=== PATIENT | male | born 1945 | race Caucasian/White ===

== ENCOUNTER 2017-11-08 02:03 | Emergency (ER) | payer MEDICARE ==
[~2017-11-08] VITALS: Ht 172.7 cm; Wt 86.2 kg
[~2017-11-08 02:03] MED LIST: ASP325T PO; CEPH500C PO; DOCU100T7 PO; HC2.5C30 PR; HYDR-3583 PO; IBUP50DR PO; MAGN-47 PO; PSYL1PAC10 PO
--- OUTSIDE RECORDS SUMMARY | 2017-11-08 02:10 | XMS REPORT | Continuity of Care Document ---
Author Author [facility] Organization [facility] Address Unknown Phone Unavailable Allergies Active Description Code Type Severity Reaction Onset Reported/Identified Relationship to Patient Clinical Status Yes No Known Drug Allergies [id number] Drug Allergy Unknown N/A 06/29/2010 Medications There is no data. Problems Date Dx Coded Attending Type Code Diagnosis Diagnosed By 07/30/2011 Ot 550.91 RECUR UNILAT INGUIN REG 02/10/2012 Ot V12.72 PERSONAL HISTORY OF COLONIC POLYPS 02/10/2012 Ot V76.51 SCREEN MAL NEOP-COLON 08/14/2012 Ot 354.0 CARPAL TUNNEL SYNDROME 09/14/2012 Ot V57.21 ENCOUNTER FOR OCCUPATIONAL THERAPY 09/14/2012 Ot V58.49 OTHER SPECIFIED AFTERCARE FOLLOWING SURG 02/16/2016 Ot 550.90 UNILAT INGUINAL HERNIA 02/16/2016 Ot V72.63 PRE- PROCEDURAL LABORATORY EXAMINATION 02/16/2016 Ot V74.8 SCREEN- BACTERIAL DIS NEC 02/16/2016 Ot V72.84 EXAM PRE- OPERATIVE NOS 02/16/2016 Ot 719.40 JOINT PAIN- UNSPEC 02/16/2016 Ot 729.5 PAIN IN LIMB 02/16/2016 Ot 716.90 ARTHROPATHY NOS-UNSPEC 02/16/2016 Ot 719.00 JOINT EFFUSION-UNSPEC 02/16/2016 Ot 354.0 CARPAL TUNNEL SYNDROME 02/16/2016 Ot V72.63 PRE- PROCEDURAL LABORATORY EXAMINATION 02/16/2016 BRADLEY RAZO DO Ot 599.70 HEMATURIA, UNSPECIFIED 02/16/2016 BRADLEY RAZO DO Ot 788.41 URINARY FREQUENCY 02/16/2016 BRADLEY RAZO DO Ot 729.5 PAIN IN LIMB 02/20/2016 BRADLEY RAZO DO Ot S99.922A UNSPECIFIED INJURY OF LEFT FOOT, INITIAL 02/20/2016 BRADLEY RAZO DO Ot W20.8XXA OTH CAUSE OF STRIKE BY THROWN, PROJECTED 02/20/2016 DANNI LUKE BRADLEY Aponte Ot Y92.[address] [facility] (PRIVATE 02/20/2016 GELLENDER DO, BRADLEY Aponte Ot S99.922A UNSPECIFIED INJURY OF LEFT FOOT, INITIAL 02/20/2016 GELLENDER DO, BRADLEY Aponte Ot W20.8XXA OTH CAUSE OF STRIKE BY THROWN, PROJECTED 02/20/2016 GELLENDER DO, BRADLEY Aponte Ot Y92.[address] [facility] NON[facility] (PRIVATE 02/21/2016 GELLENDER DO, BRADLEY Aponte Ot S99.922A UNSPECIFIED INJURY OF LEFT FOOT, INITIAL 02/21/2016 GELLENDER DO, BRADLEY Aponte Ot W20.8XXA OTH CAUSE OF STRIKE BY THROWN, PROJECTED 02/21/2016 GELLENDER DO, BRADLEY Aponte Ot Y92.[address] [facility] NON-INSTITUT (PRIVATE 03/19/2016 GELLENDER DO, BRADLEY Aponte Ot S99.922A UNSPECIFIED INJURY OF LEFT FOOT, INITIAL 03/19/2016 GELLENDER DO, BRADLEY Aponte Ot W20.8XXA OTH CAUSE OF STRIKE BY THROWN, PROJECTED 03/19/2016 GELLENDER DO, BRADLEY Aponte Ot Y92.[address] IN [facility] NON-INSTITUT (PRIVATE Procedures There is no data. Results There is no data. Encounters ACCT No. Visit Date/Time Discharge Status Pt. Type Provider Facility Loc./Unit Complaint [id number] 02/16/2016 11:02:00 02/16/2016 23:59:59 [facility] Outpatient BRADLEY RAZO DO [facility] RAD [id number] 09/06/2014 12:16:00 09/06/2014 23:59:59 [facility] Outpatient ISABELLENDER BRADLEY LUKE [facility] RAD [id number] 09/16/2013 10:10:00 09/16/2013 23:59:59 [facility] Outpatient MIODER BRADLEY LUKE [facility] LAB [id number] 11/08/2017 02:06:00 ACT Emergency STAS ZOHAIB LUKE [facility] ER DIZZY,WEAK [id number] 09/10/2012 11:08:00 Document Registration [id number] 08/14/2012 05:31:00 Document Registration [id number] 08/10/2012 08:31:00 Document Registration [id number] 06/09/2012 15:13:00 Document Registration [id number] 06/02/2012 12:17:00 Document Registration [id number] 02/10/2012 08:20:00 Document Registration [id number] 02/06/2012 08:22:00 Document Registration [id number] 07/30/2011 05:31:00 Document Registration [id number] 07/22/2011 08:55:00 Document Registration
[2017-11-08] MEDS ORDERED: SCOPOLAMINE 1.5 MG (TRANSDERM-SCOP) PATCH TD ONE (02:30)
--- NOTE | 2017-11-08 02:30 | ED General ---
General Chief Complaint: Neurological Problems Stated Complaint: DIZZY,WEAK Nursing Triage Note: weakness, dizzy. Nursing Sepsis Screen: No Definite Risk Source of Information: Patient History of Present Illness Time Seen by Provider: 02:14 Initial Comments PT ARRIVES VIA POV FROM HOME PT STATES AN HOUR AGO, HE GOT UP TO GO TO THE BATHROOM AND WAS SUDDENLY VERY DIZZY--ROOM SPINNING--AND HAVING DIFFICULTY WALKING NO HEADACHE NO NAUSEA/VOMITING NO SWEATS NO VISION CHANGES NO PARESTHESIAS OR MOTOR DEFICITS NO CHEST PAIN NO SHORTNESS OF BREATH NO PALPITATIONS NO HISTORY OF SIMILAR TOOK ONE OF HIS 'S GLUCOSE TABS AND AN ASPIRIN WITHOUT IMPROVEMENT IN SYMPTOMS 3 WEEKS AGO HAD "FLU LIKE SYMPTOMS" AND WAS SEEN AT URGENT CARE, AND WAS GIVEN RX FOR ZITHROMAX AND THOSE SYMPTOMS COMPLETELY RESOLVED. PCP: DR. RAZO Allergies and Home Medications Allergies Coded Allergies: No Known Drug Allergies (Unverified , 06/29/10) Home Medications Meclizine HCl 25 Mg Tablet, 25-50 MG PO Q6H, #30 Prescribed by: ZOHAIB MCCLELLAND on 11/08/17 0322 Scopolamine 1 Each Patch.td72, 1 EACH TD Q72 HOURS, #2 Prescribed by: ZOHAIB MCCLELLAND on 11/08/17 0322 Constitutional: see HPI, No chills, No diaphoresis, dizziness, No fever, No malaise, No weakness EENTM: no symptoms reported Respiratory: no symptoms reported Cardiovascular: no symptoms reported Gastrointestinal: no symptoms reported Genitourinary: no symptoms reported Musculoskeletal: no symptoms reported Skin: no symptoms reported Psychiatric/Neurological: No Symptoms Reported Hematologic/Lymphatic: No Symptoms Reported Immunological/Allergic: no symptoms reported Past Wzmdjck-Yltocj-Pieown Hx Patient Social History Alcohol Use: Denies Use Recreational Drug Use: No Smoking Status: Never a Smoker 2nd Hand Smoke Exposure: No Recent Foreign Travel: No Contact w/Someone Who Travel: No Recent Infectious Disease Expo: No Recent Hopitalizations: No Immunizations Up To Date Tetanus Booster (TDap): Unknown Seasonal Allergies Seasonal Allergies: No Surgeries History of Surgeries: Yes (BILATERAL INGUINAL HERNIA REPAIRS, 3 VENTRAL HERNIA REPAIRS, LEFT CARPAL TUNNEL REPAIR) Surgeries: Abdominal, Orthopedic Respiratory History of Respiratory Disorde: No Cardiovascular History of Cardiac Disorders: No Neurological History of Neurological Disord: No Reproductive System Hx Reproductive Disorders: No Sexually Transmitted Disease: No Genitourinary History of Genitourinary Disor: No Gastrointestinal History of Gastrointestinal Di: Yes (INGUINAL AND VENTRAL HERNIAS) Gastrointestinal Disorders: Abdominal Hernia Musculoskeletal History of Musculoskeletal Dis: No (LEFT CARPAL TUNNEL REPAIR) Endocrine History of Endocrine Disorders: No HEENT History of HEENT Disorders: No Cancer History of Cancer: No Psychosocial History of Psychiatric Problem: No Integumentary History of Skin or Integumenta: No Blood Transfusions History of Blood Disorders: No Physical Exam Vital Signs Vital Sign - Last 12Hours 11/08/17 02:10 Temp 96.1 Pulse 67 Resp 16 B/P (MAP) 188/106 (133) Pulse Ox 95 O2 Delivery Room Air Capillary Refill : Less Than 3 Seconds General Appearance: No Apparent Distress, WD/WN, Other (AMBULATES WITHOUT DIFFICULTY, PACING AROUND ROOM) HEENT: PERRL/EOMI Neck: Full Range of Motion, Normal Inspection, Non Tender, Supple, No Carotid Bruit, No JVD Respiratory: Normal Breath Sounds, No Accessory Muscle Use, No Respiratory Distress Cardiovascular: Regular Rate, Rhythm, No Edema, No JVD, No Murmur, Normal Peripheral Pulses Gastrointestinal: Normal Bowel Sounds, No Organomegaly, No Pulsatile Mass, Non Tender, Soft Back: Normal Inspection Extremity: Normal Capillary Refill, Normal Inspection, Normal Range of Motion, Non Tender, No Calf Tenderness, No Pedal Edema Neurologic/Psychiatric: Alert, Oriented x3, No Motor/Sensory Deficits, Normal Mood/Affect, gift packer II-XII Norm as Tested, Abnormal Cerebellar Tests Skin: Normal Color, Warm/Dry, Tattoos/Piercings (MULTIPLE TATTOOS) Progress/Results/Core Measures Suspected Sepsis Recent Fever Within 48 Hours: No Infection Criteria Present: None New/Unexplained Altered Menta: No Sepsis Screen: No Definite Risk Sepsis Diagnosis: SIRS Temperature:96.1 Pulse: 67 Respiratory Rate: 16 Laboratory Tests 11/08/17 02:20: White Blood Count 7.8 Blood Pressure 188 /106 Mean: 133 Laboratory Tests 11/08/17 02:20: Creatinine 0.78, INR Comment 0.9, Platelet Count 226, Total Bilirubin 0.3 Results/Orders Lab Results Laboratory Tests Test 11/08/17 02:20 11/08/17 02:28 Range/Units White Blood Count 7.8 4.3-11.0 10^3/uL Red Blood Count 4.61 4.35-5.85 10^6/uL Hemoglobin 15.2 13.3-17.7 G/DL Hematocrit 44 40-54 % Mean Corpuscular Volume 95 80-99 FL Mean Corpuscular Hemoglobin 33 25-34 PG Mean Corpuscular Hemoglobin Concent 35 32-36 G/DL Red Cell Distribution Width 13.3 10.0-14.5 % Platelet Count 226 130-400 10^3/uL Mean Platelet Volume 10.2 7.4-10.4 FL Neutrophils (%) (Auto) 54 42-75 % Lymphocytes (%) (Auto) 31 12-44 % Monocytes (%) (Auto) 10 0-12 % Eosinophils (%) (Auto) 5 0-10 % Basophils (%) (Auto) 0 0-10 % Neutrophils # (Auto) 4.3 1.8-7.8 X 10^3 Lymphocytes # (Auto) 2.4 1.0-4.0 X 10^3 Monocytes # (Auto) 0.8 0.0-1.0 X 10^3 Eosinophils # (Auto) 0.4 H 0.0-0.3 10^3/uL Basophils # (Auto) 0.0 0.0-0.1 10^3/uL Prothrombin Time 11.9 L 12.2-14.7 SEC INR Comment 0.9 0.8-1.4 Activated Partial Thromboplast Time 31 24-35 SEC Sodium Level 141 135-145 MMOL/L Potassium Level 4.2 3.6-5.0 MMOL/L Chloride Level 105 98-107 MMOL/L Carbon Dioxide Level 24 21-32 MMOL/L Anion Gap 12 5-14 MMOL/L Blood Urea Nitrogen 19 H 7-18 MG/DL Creatinine 0.78 0.60-1.30 MG/DL Estimat Glomerular Filtration Rate > 60 BUN/Creatinine Ratio 24 Glucose Level 127 H 70-105 MG/DL Calcium Level 9.3 8.5-10.1 MG/DL Magnesium Level 2.3 1.8-2.4 MG/DL Total Bilirubin 0.3 0.1-1.0 MG/DL Aspartate Amino Transf (AST/SGOT) 18 5-34 U/L Alanine Aminotransferase (ALT/SGPT) 20 0-55 U/L Alkaline Phosphatase 75 40-136 U/L Troponin I < 0.30 <0.30 NG/ML Total Protein 7.4 6.4-8.2 GM/DL Albumin 3.9 3.2-4.5 GM/DL TSH [place] Testing 3.47 0.35-4.94 UIU/ML Urine Color YELLOW Urine Clarity CLEAR Urine pH 5 5-9 Urine Specific [place] 1.025 H 1.016-1.022 Urine Protein NEGATIVE NEGATIVE Urine Glucose (UA) NEGATIVE NEGATIVE Urine Ketones NEGATIVE NEGATIVE Urine Nitrite NEGATIVE NEGATIVE Urine Bilirubin NEGATIVE NEGATIVE Urine Urobilinogen NORMAL NORMAL MG/DL Urine Leukocyte Esterase NEGATIVE NEGATIVE Urine RBC (Auto) 1+ H NEGATIVE Urine RBC 0-2 /HPF Urine WBC NONE /HPF Urine Squamous Epithelial Cells 0-2 /HPF Urine Crystals NONE /LPF Urine Bacteria NEGATIVE /HPF Urine Casts NONE /LPF Urine Mucus SMALL H /LPF Urine Culture Indicated NO My Orders Orders - ZOHAIB MCCLELLAND DO Saline Lock/Iv-Start (11/08/17 02:13) Ekg Tracing (11/08/17 02:13) Monitor-Rhythm Ecg Trace Only (11/08/17 02:13) Cbc With Automated Diff (11/08/17 02:13) Comprehensive Metabolic Panel (11/08/17 02:13) Magnesium (11/08/17 02:13) Protime With Inr (11/08/17 02:13) Partial Thromboplastin Time (11/08/17 02:13) Thyroid Analyzer (11/08/17 02:13) Troponin I (11/08/17 02:13) Ua Culture If Indicated (11/08/17 02:13) Ct Head Wo-R/O Stroke (11/08/17 02:24) Chest Pa/Lat (2 View) (11/08/17 02:24) Scopolamine Patch (Transderm-Scop Patch) (11/08/17 02:30) Meclizine Tablet (Antivert Tablet) (11/08/17 03:15) Medications Given in ED Current Medications Medications Dose Ordered Sig/Carlito Route Start Time Stop Time Status Last Admin Dose Admin Meclizine HCl 50 mg ONCE ONCE PO 11/08/17 03:15 11/08/17 03:16 DC 11/08/17 03:19 50 MG Scopolamine 1.5 mg ONCE ONCE TD 11/08/17 02:30 11/08/17 02:53 DC 11/08/17 02:32 1.5 MG Vital Signs/I&O Vital Sign - Last 12Hours 11/08/17 11/08/17 02:10 03:03 Temp 96.1 Pulse 67 68 Resp 16 16 B/P (MAP) 188/106 (133) 174/96 (122) Pulse Ox 95 95 O2 Delivery Room Air Room Air Capillary Refill : Less Than 3 Seconds Blood Pressure Mean: 133 Progress Note : Progress Note SYMPTOMS IMPROVED AND BP DOWN TO 150'S /70'S PRIOR TO DISMISSAL PT FEELS COMFORTABLE GOING HOME ECG Initial ECG Impression Time: 02:35 Initial ECG Rate: 63 Initial ECG Rhythm: Normal Sinus (RBBB) Diagnostic Imaging Comments CXR--NO ACUTE PROCESS, PENDING RADIOLOGIST REVIEW CT HEAD--NO ACUTE PROCESS, PER [facility] VIA FAX @ [phone] Reviewed: Reviewed by Me Departure Impression Impression: Primary Impression: Vertigo Additional Impression: HTN (hypertension) Disposition: 01 HOME, SELF-CARE Condition: Improved Departure-Patient Inst. Referrals: BRADLEY RAZO DO (PCP/Family) Primary Care Physician Patient Instructions: Controlling Your Blood Pressure Through Lifestyle, High Blood Pressure (DC), Vertigo (a Type of Dizziness) (DC) Add. Discharge Instructions: SLOW POSITION CHANGES LEAVE SCOPOLAMINE PATCH ON FOR 3 DAYS FOLLOW UP WITH DR. RAZO ON FRIDAY FOR FURTHER CARE RETURN TO ER IF SYMPTOMS WORSEN All discharge instructions reviewed with patient and/or family. Voiced understanding. Scripts Scopolamine (Transderm-Scop) 1 Each Patch.td72 1 EACH TD Q72 HOURS for Dizziness, #2 PATCH Prov: ZOHAIB MCCLELLAND DO 11/08/17 Meclizine HCl (Meclizine HCl) 25 Mg Tablet 25-50 MG PO Q6H for Dizziness, #30 TAB Prov: ZOHAIB MCCLELLAND DO 11/08/17 ZOHAIB MCCLELLAND DO Nov 08, 2017 02:30
[2017-11-08 02:34] LABS: RED BLOOD COUNT 4.61 10^6/uL (4.35-5.85); WHITE BLOOD COUNT 7.8 10^3/uL (4.3-11.0)
[2017-11-08 02:35] LABS: BASOPHILS % (AUTO) 0 % (0-10); EOSINOPHILS # (AUTO) 0.4 10^3/uL (0.0-0.3); EOSINOPHILS % (AUTO) 5 % (0-10); HEMATOCRIT 44 % (40-54); HEMOGLOBIN 15.2 G/DL (13.3-17.7); LYMPHOCYTES # (AUTO) 2.4 X 10^3 (1.0-4.0); LYMPHOCYTES % (AUTO) 31 % (12-44); MEAN CORPUSCULAR HEMOGLOBIN 33 PG (25-34); MEAN CORPUSCULAR HGB CONC 35 G/DL (32-36); MEAN CORPUSCULAR VOLUME 95 FL (80-99); MEAN PLATELET VOLUME 10.2 FL (7.4-10.4); MONOCYTES # (AUTO) 0.8 X 10^3 (0.0-1.0); MONOCYTES % (AUTO) 10 % (0-12); NEUTROPHILS # (AUTO) 4.3 X 10^3 (1.8-7.8); NEUTROPHILS % (AUTO) 54 % (42-75); PLATELET COUNT 226 10^3/uL (130-400); RED CELL DISTRIBUTION WIDTH 13.3 % (10.0-14.5)
[2017-11-08 02:44] LABS: BILIRUBIN,URINE NEGATIVE (NEGATIVE); CLARITY,URINE CLEAR; COLOR,URINE YELLOW; GLUCOSE, URINE (UA) NEGATIVE (NEGATIVE); KETONES,URINE NEGATIVE (NEGATIVE); LEUKOCYTE ESTERASE ,URINE NEGATIVE (NEGATIVE); NITRITE,URINE NEGATIVE (NEGATIVE); PH,URINE 5 (5-9); PROTEIN,URINE NEGATIVE (NEGATIVE); UROBILINOGEN,URINE NORMAL (NORMAL)
[2017-11-08 02:45] LABS: INR 0.9 (0.8-1.4); PROTHROMBIN TIME PATIENT 11.9 SEC (12.2-14.7)
[2017-11-08 02:52] LABS: BACTERIA,URINE NEGATIVE /HPF; RBC,URINE 0-2 /HPF; SQUAMOUS EPITHELIAL CELL,UR 0-2 /HPF
[2017-11-08 02:54] LABS: ALANINE AMINOTRANSFERASE 20 U/L (0-55); ALBUMIN 3.9 GM/DL (3.2-4.5); ALKALINE PHOSPHATASE 75 U/L (40-136); BILIRUBIN,TOTAL 0.3 MG/DL (0.1-1.0); BUN/CREATININE RATIO 24; CALCIUM 9.3 MG/DL (8.5-10.1); CARBON DIOXIDE 24 MMOL/L (21-32); CHLORIDE 105 MMOL/L (98-107); CREATININE SERUM 0.78 MG/DL (0.60-1.30); GFR ESTIMATED > 60; GLUCOSE 127 MG/DL (70-105); MAGNESIUM 2.3 MG/DL (1.8-2.4); POTASSIUM 4.2 MMOL/L (3.6-5.0); SODIUM 141 MMOL/L (135-145); TOTAL PROTEIN 7.4 GM/DL (6.4-8.2)
[2017-11-08 03:03] VITALS: BP 174/96
[2017-11-08 03:13] LABS: TSH (THYROID ANALYZER) 3.47 UIU/ML (0.35-4.94)
[2017-11-08] MEDS ORDERED: MECLIZINE 25 MG (ANTIVERT) TAB PO ONE (03:15)
[2017-11-08] MEDS ORDERED: MECL-106 PO (03:22)
[2017-11-08] MEDS ORDERED: SCOP1PAT TD (03:22)
[2017-11-08 04:02] VITALS: BP 158/83
--- NOTE | 2017-11-08 07:13 | Diagnostic Imaging Report ---
EXAM: CHEST PA/LAT (2 VIEW) INDICATION: Dizziness. Weakness. COMPARISON: None. FINDINGS: Normal heart size and pulmonary vascularity. Calcified aorta. No focal pulmonary opacity, pleural effusion or pneumothorax. Osseous structures are unremarkable. IMPRESSION: No acute cardiopulmonary findings. Dictated by: Dictated on workstation # [id number]
--- NOTE | 2017-11-08 07:27 | Diagnostic Imaging Report ---
EXAMINATION: CT HEAD WO-R/O STROKE INDICATION: Dizziness. Weakness. COMPARISON: None. FINDINGS: Moderate generalized cerebral and cerebellar parenchymal volume loss. Diffuse low-attenuation changes in the subcortical white matter are generally symmetric bilaterally. No CT evidence for large territorial infarction. No intracranial hemorrhage, mass effect, hydrocephalus or extra axial fluid collections. Osseous structures are intact. Mild mucosal thickening in the right maxillary sinus. The mastoids are clear. IMPRESSION: No CT evidence of a territorial infarction. Nonspecific low attenuation changes in the deep white matter bilaterally may represent leukoaraiosis. However, an acute or subacute process cannot be excluded. This could be better evaluated with MRI. Dictated by: Dictated on workstation # [id number]
== END 2017-11-08 04:00 | disposition home or self-care (01) ==
LOC: EDUNIT# 02:03 → ER 02:06
DX: R42 Dizziness and giddiness (principal); I10 Essential (primary) hypertension; Z87.19 Personal history of other diseases of the digestive system
CPT/HCPCS: 36415; 70450; 71046; 80053; 81000; 83735; 84443; 84484; 85025; 85610; 85730; 93005; 93041

== ENCOUNTER → 2020-01-03 | Outpatient (CLI) | payer MEDICARE ==
[~2020-01-03] MED LIST changes: +MECL-149 PO; +SCOP1PAT11 TD
--- NOTE | 2020-01-03 14:19 | Diagnostic Imaging Report ---
INDICATION: Left lower back pain, bilateral hip pain. TECHNIQUE: AP pelvis along with 2 views bilateral hips, 12:02 PM. CORRELATION STUDY: None FINDINGS: The pelvis demonstrates no evidence for acute fracture. The pectineal lines and obturator rings are maintained. Pubic symphysis and SI joints are unremarkable. There is mild degenerative change of both hips which includes joint space narrowing. Mild overhanging osteophyte formation is present. Bony trabecular pattern is intact. Findings compatible with prior right abdominal wall hernia repair. Moderate severity fecal retention. Asymmetric degenerative changes along the disc space along the right aspect of the lower lumbar spine. IMPRESSION: Negative examination of the pelvis . 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 Dictated by: Dictated on workstation # [id number]
== END ==
LOC: RAD 11:37
PROVIDERS: ATTEND Family Medicine
DX: M16.0 Bilateral primary osteoarthritis of hip (principal)
CPT/HCPCS: 73523

== ENCOUNTER 2021-05-29 12:26 | Emergency (ER) | payer MEDICARE ==
[~2021-05-29] VITALS: Ht 177.8 cm; Wt 86.2 kg
--- NOTE | 2021-05-29 12:53 | ED Cardiac General ---
History of Present Illness General Chief Complaint: Cardiac/General Problems Stated Complaint: HIGH BP Source: patient Exam Limitations: no limitations History of Present Illness Date Seen by Provider: May 29, 2021 Time Seen by Provider: 12:[address] [facility] called ahead to notify us the patient would be coming out to the ER. Presented to the clinic with chief complaint of dizziness and thought maybe he was having an anxiety attack but was noted to have a blood pressure of 240/105. Typically his blood pressure runs in the 140 over nineties range. Patient states that this morning about 615 he woke up with lightheadedness feeling of movement around the room. He says it was similar to an episode a few years ago he was given a pill that made it all go better. He went to see his doctor, Dr. Razo who measured his blood pressure 200 systolic in his left arm and 210 systolic on his right arm. He thought maybe part of it was anxiety however Dr. Razo insisted he come to the ER to be further evaluated. He does not take any medicines routinely nor have any other known medical history. He says he been working on the yard a lot here lately and had to struggle with pulling a boat yesterday. He did try eating something today which made him feel little better but did not help. He says it is worse when he gets up out of bed or up from a seated position. He has not taken any Dramamine, meclizine, scopolamine. He is not having any double vision, seeing any spots, weakness, numbness, slurred speech, facial droop. Allergies and Home Medications Allergies Coded Allergies: No Known Drug Allergies (Unverified , 06/29/10) Home Medications Amlodipine Besylate 5 Mg Tablet, 5 MG PO DAILY Prescribed by: SYED LOUIS on 05/29/21 1443 Meclizine HCl 25 Mg Tablet, 25-50 MG PO Q6H Prescribed by: ZOHAIB MCCLELLAND on 11/08/17 032 Scopolamine 1 Each Patch.td72, 1 EACH TD Q72 HOURS Prescribed by: ZOHAIB MCCLELLAND on 11/08/17321 Patient Home Medication List Home Medication List Reviewed: Yes Review of Systems Review of Systems Constitutional: No chills, No diaphoresis EENTM: No Blurred Vision, No Double Vision Respiratory: Denies Cough, Denies Shortness of Air Cardiovascular: Denies Chest Pain, Denies Lightheadedness Gastrointestinal: Denies Constipated, Denies Diarrhea Genitourinary: Denies Discharge, Denies Drainage Musculoskeletal: No back pain, No joint pain Skin: No pruritus, No rash All Other Systems Reviewed Negative Unless Noted: Yes Past Pwkhlsw-Arwfgt-Ilmfyf Hx Patient Social History Tobacco Use?: No Smoking Status: Never a Smoker Substance use?: No Alcohol Use?: No Pt feels they are or have been: No Immunizations Up To Date Tetanus Booster (TDap): Unknown Seasonal Allergies Seasonal Allergies: No Past Medical History Surgeries: Yes Abdominal, Orthopedic Respiratory: No Cardiac: No Neurological: No Reproductive Disorders: No Sexually Transmitted Disease: No Genitourinary: No Gastrointestinal: Yes (INGUINAL AND VENTRAL HERNIAS) Abdominal Hernia Musculoskeletal: No (LEFT CARPAL TUNNEL REPAIR) Endocrine: No HEENT: No Cancer: No Psychosocial: No Integumentary: No Blood Disorders: No Physical Exam Vital Signs Vital Signs - First Documented 05/29/21 12:33 Temp 36.5 Pulse 73 Resp 20 B/P (MAP) 236/105 (148) Pulse Ox 97 O2 Delivery Room Air Capillary Refill : Less Than 3 Seconds Height, Weight, BMI Height: 5'8.00" Weight: 190lbs. 0oz. 86.246839mm; BMI Method:Stated General Appearance: No Apparent Distress, WD/WN HEENT: PERRL/EOMI, Pharynx Normal, Moist Mucous Membranes Neck: Full Range of Motion, Normal Inspection, Supple Respiratory: Lungs Clear, Normal Breath Sounds, No Accessory Muscle Use, No Respiratory Distress Cardiovascular: Regular Rate, Rhythm, No Edema, Normal Peripheral Pulses Gastrointestinal: Normal Bowel Sounds, Non Tender, Soft Neurologic/Psychiatric: Alert, Oriented x3, No Motor/Sensory Deficits, Normal Mood/Affect, spray unit feeder II-XII Norm as Tested, Other (Negative for positive head impulse, nystagmus with lateral gaze or abnormal test of skew.) Skin: Normal Color, Warm/Dry Progress/Results/Core Measures Results/Orders Lab Results Laboratory Tests Test 05/29/21 13:07 Range/Units White Blood Count 8.3 4.3-11.0 10^3/uL Red Blood Count 4.58 4.30-5.52 10^6/uL Hemoglobin 14.9 13.3-17.7 g/dL Hematocrit 44 40-54 % Mean Corpuscular Volume 96 80-99 fL Mean Corpuscular Hemoglobin 33 25-34 pg Mean Corpuscular Hemoglobin Concent 34 32-36 g/dL Red Cell Distribution Width 13.0 10.0-14.5 % Platelet Count 222 130-400 10^3/uL Mean Platelet Volume 10.4 9.0-12.2 fL Immature Granulocyte % (Auto) 0 % Neutrophils (%) (Auto) 74 42-75 % Lymphocytes (%) (Auto) 19 12-44 % Monocytes (%) (Auto) 7 0-12 % Eosinophils (%) (Auto) 0 0-10 % Basophils (%) (Auto) 1 0-10 % Neutrophils # (Auto) 6.1 1.8-7.8 10^3/uL Lymphocytes # (Auto) 1.5 1.0-4.0 10^3/uL Monocytes # (Auto) 0.6 0.0-1.0 10^3/uL Eosinophils # (Auto) 0.0 0.0-0.3 10^3/uL Basophils # (Auto) 0.1 0.0-0.1 10^3/uL Immature Granulocyte # (Auto) 0.0 0.0-0.1 10^3/uL Sodium Level 139 135-145 MMOL/L Potassium Level 4.3 3.6-5.0 MMOL/L Chloride Level 105 98-107 MMOL/L Carbon Dioxide Level 24 21-32 MMOL/L Anion Gap 10 5-14 MMOL/L Blood Urea Nitrogen 20 H 7-18 MG/DL Creatinine 0.85 0.60-1.30 MG/DL Estimat Glomerular Filtration Rate 87 BUN/Creatinine Ratio 24 Glucose Level 109 H 70-105 MG/DL Calcium Level 9.4 8.5-10.1 MG/DL Corrected Calcium 9.2 8.5-10.1 MG/DL Total Bilirubin 0.6 0.1-1.0 MG/DL Aspartate Amino Transf (AST/SGOT) 14 5-34 U/L Alanine Aminotransferase (ALT/SGPT) 15 0-55 U/L Alkaline Phosphatase 61 40-136 U/L Troponin I < 0.028 <0.028 NG/ML C-Reactive Protein High Sensitivity 0.07 0.00-0.50 MG/DL B-Type Natriuretic Peptide 72.3 <100.0 PG/ML Total Protein 7.2 6.4-8.2 GM/DL Albumin 4.2 3.2-4.5 GM/DL My Orders Orders - SYED LOUIS Continuous Ekg Monitoring (05/29/21 12:28) Ekg Tracing (05/29/21 12:28) Cbc With Automated Diff (05/29/21 12:28) Comprehensive Metabolic Panel (05/29/21 12:28) Hs C Reactive Protein (05/29/21 12:28) Troponin I (05/29/21 12:28) BNP (05/29/21 12:28) Orthostatic Vital Signs (Adult (05/29/21 12:28) Meclizine Tablet (Antivert Tablet) (05/29/21 13:30) Ct Head Wo (05/29/21 13:28) Labetalol Injection (Normodyne Injection (05/29/21 14:45) Medications Given in ED Current Medications Medications Dose Ordered Sig/Carlito Route Start Time Stop Time Status Last Admin Dose Admin Labetalol HCl 20 mg ONCE ONCE IV 05/29/21 14:45 05/29/21 14:46 DC 05/29/21 14:39 20 MG Meclizine HCl 25 mg ONCE ONCE PO 05/29/21 13:30 05/29/21 13:31 DC 05/29/21 13:40 25 MG Vital Signs/I&O 05/29/21 05/29/21 12:33 13:15 Temp 36.5 Pulse 73 65 68 75 Resp 20 B/P (MAP) 236/105 (148) 204/93 (130) 192/104 (133) 184/100 (128) Pulse Ox 97 O2 Delivery Room Air Progress Progress Note #1: Time: 12:52 Progress Note Labs for previous syncope, EKG. Orthostatics. Hypertensive urgency without any neurologic symptoms elicited. Augustina's maneuver failed to reproduce symptoms. Negative for hints suggesting a peripheral lesion if vertigo is the answer. We will get a set of orthostatics and if his blood pressure does not significantly improve will trial something for blood pressure. If it does improve then we will trial meclizine. I attest that I saw this patient alongside the medical student and agree with his documented history, physical exam and review of systems except as otherwise noted. Progress Note #2: Time: 13:26 Progress Note Orthostats are borderline positive. After about 20 to 30 minutes of resting in the room his blood pressure is down to 184/100 which is a significant decrease. Plan to trial some meclizine and reevaluate. He is not currently vertiginous. If he tolerates the labetalol we will set him out on a calcium channel aleksander, amlodipine and follow-up in 1 week with primary care. Initial ECG Impression Date: May 29, 2021 Initial ECG Impression Time: 12:44 Initial ECG Rate: 65 Initial ECG Rhythm: Normal Sinus Initial ECG Intervals: Normal Initial ECG Impression: Normal Initial ECG Comparisson: No Previous ECG Available Comment Normal sinus rhythm without clinically relevant ST elevation or depression. Right bundle branch block. Diagnostic Imaging Diagonstic Imaging: CT Plain Films/CT/US/NM/MRI: head Comments [facility], [place] NAME: PABLO HALE [facility] REC#: [id number] PT STATUS: REG ER : 1945 PHYSICIAN: SYED LOUIS MD ADMIT DATE: 05/29/21/ER Draft Date of Exam:05/29/21 CT HEAD WO EXAMINATION: CT head without contrast. TECHNIQUE: Multiple contiguous axial images were obtained through the brain without the use of intravenous contrast. All CT scans use one or more of the following dose optimizing techniques: automated exposure control, MA and/or KvP adjustment based on patient size and exam type or iterative reconstruction. HISTORY: Hypertension, headache. COMPARISON: CT head 11/08/2017 FINDINGS: Mild diffuse cerebral volume loss with proportional enlargement of the ventricles and sulci. Moderate hypodensities throughout the supratentorial white matter posterior hemispheres. No acute intracranial hemorrhage or abnormal extra-axial fluid collections are present. No hyperdense vessel. The calvarium is intact. The mastoid air cells are clear. The visualized paranasal sinuses are clear. Surgical changes from bilateral cataract repair. IMPRESSION: 1. No acute intracranial abnormality. 2. Chronic microangiopathy and volume loss. Dictated on workstation # [id number] Dict: 05/29/21 1412 Trans: 05/29/21 1415 [id number] Interpreted by: BRENNEN HIDALGO DO Electronically signed by: Reviewed: Reviewed by Me Departure Impression Primary Impression: Hypertensive urgency Disposition: 01 HOME, SELF-CARE Condition: Stable Departure-Patient Inst. Decision time for Depature: 15:11 Referrals: BRADLEY RAZO DO (PCP/Family) Primary Care Physician Patient Instructions: High Blood Pressure Emergencies, Medicines for High Blood Pressure Add. Discharge Instructions: supervisor net making the amlodipine and take 1 capsule daily. Follow-up with the primary care doctor in the next 1 to 2 weeks for recheck. Return to the ER if you are having any weakness numbness slurred speech, blurred vision or other worrisome symptoms. All discharge instructions reviewed with patient and/or family. Voiced understanding. Scripts Amlodipine Besylate (Amlodipine Besylate) 5 Mg Tablet 5 MG PO DAILY for 14 Days, #14 TAB 0 Refills Prov: SYED LOUIS 05/29/21 Copy Copies To 1: BRADLEY RAZO TITUS J May 29, 2021 12:53
[2021-05-29 13:13] LABS: BASOPHILS # (AUTO) 0.1 10^3/uL (0.0-0.1); BASOPHILS % (AUTO) 1 % (0-10); EOSINOPHILS % (AUTO) 0 % (0-10); HEMATOCRIT 44 % (40-54); HEMOGLOBIN 14.9 g/dL (13.3-17.7); LYMPHOCYTES # (AUTO) 1.5 10^3/uL (1.0-4.0); LYMPHOCYTES % (AUTO) 19 % (12-44); MEAN CORPUSCULAR HEMOGLOBIN 33 pg (25-34); MEAN CORPUSCULAR HGB CONC 34 g/dL (32-36); MEAN CORPUSCULAR VOLUME 96 fL (80-99); MEAN PLATELET VOLUME 10.4 fL (9.0-12.2); MONOCYTES # (AUTO) 0.6 10^3/uL (0.0-1.0); MONOCYTES % (AUTO) 7 % (0-12); NEUTROPHILS # (AUTO) 6.1 10^3/uL (1.8-7.8); NEUTROPHILS % (AUTO) 74 % (42-75); PLATELET COUNT 222 10^3/uL (130-400); WHITE BLOOD COUNT 8.3 10^3/uL (4.3-11.0)
[2021-05-29 13:15] VITALS: BP_SYST 184; BP_SYST 192; BP_SYST 204; BP_DIAS 100; BP_DIAS 104; BP_DIAS 93
[2021-05-29 13:20] LABS: ALBUMIN 4.2 GM/DL (3.2-4.5); CHLORIDE 105 MMOL/L (98-107); POTASSIUM 4.3 MMOL/L (3.6-5.0)
[2021-05-29 13:21] LABS: SODIUM 139 MMOL/L (135-145)
[2021-05-29 13:22] LABS: CALCIUM 9.4 MG/DL (8.5-10.1)
[2021-05-29 13:23] LABS: GLUCOSE 109 MG/DL (70-105); TOTAL PROTEIN 7.2 GM/DL (6.4-8.2)
[2021-05-29 13:24] LABS: CARBON DIOXIDE 24 MMOL/L (21-32)
[2021-05-29 13:25] LABS: BILIRUBIN,TOTAL 0.6 MG/DL (0.1-1.0)
[2021-05-29 13:26] LABS: ALKALINE PHOSPHATASE 61 U/L (40-136)
[2021-05-29 13:27] LABS: CREATININE SERUM 0.85 MG/DL (0.60-1.30); GFR ESTIMATED 87
[2021-05-29 13:28] LABS: BUN/CREATININE RATIO 24
[2021-05-29 13:29] LABS: ALANINE AMINOTRANSFERASE 15 U/L (0-55)
[2021-05-29] MEDS ORDERED: MECLIZINE 25 MG (ANTIVERT) TAB PO ONE (13:30)
--- NOTE | 2021-05-29 14:15 | Diagnostic Imaging Report ---
EXAMINATION: CT head without contrast. TECHNIQUE: Multiple contiguous axial images were obtained through the brain without the use of intravenous contrast. All CT scans use one or more of the following dose optimizing techniques: automated exposure control, MA and/or KvP adjustment based on patient size and exam type or iterative reconstruction. HISTORY: Hypertension, headache. COMPARISON: CT head 11/08/2017 FINDINGS: Mild diffuse cerebral volume loss with proportional enlargement of the ventricles and sulci. Moderate hypodensities throughout the supratentorial white matter posterior hemispheres. No acute intracranial hemorrhage or abnormal extra-axial fluid collections are present. No hyperdense vessel. The calvarium is intact. The mastoid air cells are clear. The visualized paranasal sinuses are clear. Surgical changes from bilateral cataract repair. IMPRESSION: 1. No acute intracranial abnormality. 2. Chronic microangiopathy and volume loss. Dictated by: Dictated on workstation # [id number]
[2021-05-29] MEDS ORDERED: AMLO-250 PO (14:43)
[2021-05-29] MEDS ORDERED: LABETALOL HCL 20 MG/4 ML VIAL IV ONE (14:45)
[2021-05-29 15:28] VITALS: BP 168/93
== END 2021-05-29 15:28 | disposition home or self-care (01) ==
LOC: EDUNIT# 12:26 → ER 12:27
DX: I16.0 Hypertensive urgency (principal)
CPT/HCPCS: 36415; 70450; 80053; 83880; 84484; 85025; 86141; 93005

== ENCOUNTER 2021-09-10 07:10 | Emergency (ER) | payer MEDICARE ==
[~2021-09-10] VITALS: Ht 177 cm; Wt 83.9 kg
[~2021-09-10 07:10] MED LIST changes: +AMLO-250 PO; +SCOP1PAT10 TD; -SCOP1PAT11 TD
[2021-09-10] MEDS ORDERED: LISI10TA25 PO (07:43)
--- NOTE | 2021-09-10 07:45 | ED General ---
General Chief Complaint: Cardiac/General Problems Stated Complaint: DIZZINESS,HTN Nursing Triage Note: pt presents to ed via pov from home with complaints of hypertension and dizziness starting early this morning. Source of Information: Patient Exam Limitations: No Limitations History of Present Illness Date Seen by Provider: Sep 10, 2021 Time Seen by Provider: 07:32 Initial Comments Patient is a 76-year-old male who presents to the emergency department today with a chief complaint of high blood pressure. Patient states he recently saw Dr. Razo last week and was diagnosed with hypertension, started on lisinopril 10 mg tablets. Patient states that he is taken his blood pressure medicine every day since Friday and has had "no problems" with his blood pressure. Yesterday he misplaced his lisinopril, he thinks it may have rolled out of his car. He took his blood pressure this morning and it was very high therefore he came to the emergency room hoping to get a refill on his lisinopril. Patient denies any headache, vision changes or speech difficulties. No unilateral weakness, numbness or tingling. He denies any chest pain or shortness of breath. He is not having abdominal pain or nausea. No swelling in his legs. He does admit to some right calf cramping that he states has been present for about a year now. Nothing tends to bring this on or make it any better. Patient is simply wanting a refill on his lisinopril. All other review of systems reviewed and negative except as stated. Timing/Duration: 1 Day Associated Systoms: Denies Symptoms Allergies and Home Medications Allergies Coded Allergies: No Known Drug Allergies (Unverified , 06/29/10) Patient Home Medication List Home Medication List Reviewed: Yes Amlodipine Besylate (Amlodipine Besylate) 5 Mg Tablet, 5 MG PO DAILY Prescribed by: SYED LOUIS on 05/29/21 1443 Lisinopril (Lisinopril) 10 Mg Tablet, 10 MG PO DAILY Prescribed by: ANNETTE MILLER on 09/10/21 0743 Meclizine HCl (Meclizine HCl) 25 Mg Tablet, 25-50 MG PO Q6H Prescribed by: ZOHAIB MCCLELLAND on 11/08/17 0322 Scopolamine (Transderm-Scop) 1 Each Patch.td72, 1 EACH TD Q72 HOURS Prescribed by: ZOHAIB MCCLELLAND on 11/08/17 0322 Review of Systems Review of Systems Constitutional: see HPI EENTM: no symptoms reported Respiratory: no symptoms reported Cardiovascular: no symptoms reported Gastrointestinal: no symptoms reported Genitourinary: no symptoms reported Musculoskeletal: no symptoms reported Skin: no symptoms reported Psychiatric/Neurological: Denies Headache, Denies Numbness, Denies Paresthesia All Other Systems Reviewed Negative Unless Noted: Yes Past Mbslabn-Suihwe-Xshzls Hx Patient Social History Tobacco Use?: No Substance use?: No Alcohol Use?: No Pt feels they are or have been: No Immunizations Up To Date Tetanus Booster (TDap): Unknown Seasonal Allergies Seasonal Allergies: No Past Medical History Surgery/Hospitalization HX: pmh: htn Surgeries: Yes Abdominal, Orthopedic Respiratory: No Cardiac: No Neurological: No Reproductive Disorders: No Sexually Transmitted Disease: No Genitourinary: No Gastrointestinal: Yes (INGUINAL AND VENTRAL HERNIAS) Abdominal Hernia Musculoskeletal: No (LEFT CARPAL TUNNEL REPAIR) Endocrine: No HEENT: No Cancer: No Psychosocial: No Integumentary: No Blood Disorders: No Physical Exam Vital Signs Vital Signs - First Documented 09/10/21 07:24 Temp 35.9 Pulse 71 Resp 18 B/P (MAP) 207/108 (141) Pulse Ox 97 Capillary Refill : Less Than 3 Seconds Height, Weight, BMI Height: 5'8.00" Weight: 190lbs. 0oz. 86.252448ml; 26.00 BMI Method:Stated General Appearance: No Apparent Distress, WD/WN, Anxious (mildly) Eyes: Bilateral Eye Normal Inspection, Bilateral Eye PERRL, Bilateral Eye EOMI HEENT: PERRL/EOMI Neck: Normal Inspection Respiratory: Lungs Clear, Normal Breath Sounds, No Accessory Muscle Use, No Respiratory Distress Cardiovascular: Regular Rate, Rhythm, Normal Peripheral Pulses Gastrointestinal: Non Tender, Soft Extremity: Normal Capillary Refill, Normal Inspection, Non Tender, No Calf Tenderness, No Pedal Edema Neurologic/Psychiatric: Alert, Oriented x3, No Motor/Sensory Deficits, Normal Mood/Affect, academic affairs dean II-XII Norm as Tested Skin: Normal Color, Warm/Dry Progress/Results/Core Measures Suspected Sepsis SIRS Temperature: Pulse: 71 Respiratory Rate: 18 Blood Pressure 207 /108 Mean: 141 Results/Orders Vital Signs/I&O 09/10/21 07:24 Temp 35.9 Pulse 71 Resp 18 B/P (MAP) 207/108 (141) Pulse Ox 97 Capillary Refill : Less Than 3 Seconds Blood Pressure Mean: 141 Progress Note : Time: 07:44 Progress Note Patient seen and examined, misplaced his lisinopril yesterday. Concerned about elevated blood pressure this morning. Systolic is in the mid 190s. Patient has no complaints, signs or symptoms of endorgan issues. No chest pain, shortness of breath, renal complaints, change in mental status, weakness or other concerns. Patient requests a refill be sent to his pharmacy at [facility]. He would like to take one of his own pills rather than have a pill from the emergency department. Patient is given good return precautions. He verbalized understanding. All questions are sought and answered. 0800 Systolic BP down to 177 on d/c Departure Impression Primary Impression: Essential hypertension Additional Impression: Medication refill Disposition: HOME, SELF-CARE Condition: Stable Departure-Patient Inst. Decision time for Depature: 07:43 Referrals: BRADLEY RAZO DO (PCP/Family) Primary Care Physician Patient Instructions: High Blood Pressure in Adults Add. Discharge Instructions: Continue your lisinopril daily. When you fill your prescription this morning please take a tablet as soon as you fill it. Please come back to the emergency department if you develop any headache, vision changes, weakness, shortness of breath chest pain or any other emergent concerning symptoms. Please keep your follow-up appointment with Dr. Razo this Friday. Scripts Lisinopril (Lisinopril) 10 Mg Tablet 10 MG PO DAILY, #30 TAB Prov: ANNETTE MILLER MD 09/10/21 ANNETTE MILLER MD Sep 10, 2021 07:45
[2021-09-10 08:02] VITALS: BP 177/81
== END 2021-09-10 08:02 | disposition home or self-care (01) ==
LOC: EDUNIT# 07:10 → ER 07:12
DX: I10 Essential (primary) hypertension (principal); Z76.0 Encounter for issue of repeat prescription
CPT/HCPCS: 99281

== ENCOUNTER → 2022-06-07 | Outpatient (CLI) | payer MEDICARE ==
[~2022-06-07] MED LIST changes: +LISI10TA25 PO
--- NOTE | 2022-06-07 10:10 | Diagnostic Imaging Report ---
Indication: Right-sided back pain. Time of Exam: 9:51 AM There is a mild right convexity lumbar scoliotic curvature. There is normal lordotic curvature. Vertebral body heights are maintained. No acute compression fracture seen. There is some generalized degenerative disc disease with variable disc space narrowing and marginal spurring. There is lower lumbar facet arthropathy. Aorta is calcified. IMPRESSION: Lumbar spondylosis and scoliosis. No acute bony abnormality is detected. Dictated by: Dictated on workstation # [id number]
== END ==
LOC: RAD 09:35
PROVIDERS: ATTEND Family Medicine
DX: M47.816 Spondylosis without myelopathy or radiculopathy, lumbar region (principal); M41.86 Other forms of scoliosis, lumbar region
CPT/HCPCS: 72100